=== PATIENT | female | born 1960 | race Caucasian/White ===

== ENCOUNTER 2019-09-07 16:56 | Inpatient (IN) ==
[2019-09-07] MEDS ORDERED: FUROSEMIDE 40 MG/4 ML VIAL IV STA (18:15)
[2019-09-07] MEDS ORDERED: ALBUTEROL/IPRATROPIUM 3 ML NEB RESP TX STA (18:15)
[2019-09-07] MEDS ORDERED: CLINDAMYCIN INJ 900 MG in PREMIX 1 EACH IV STA (18:15)
[2019-09-07 18:24] LABS: Basophils # 0.1 10*3/uL (0.0-0.2); Basophils % 0.5 % (0.0-0.8); Eosinophils # 0.2 10*3/uL (0.0-0.87); Eosinophils % 1.4 % (0.00-10.9); Hematocrit 38.6 VOL% (35.7-47.0); Hemoglobin 12.1 GM/DL (12.0-16.0); Immature Granulocytes % 1.1 %; Immature Granulocytes Absolute 0.14 #; Lymphocytes # 3.4 10*3/uL (1.4-4.0); Lymphocytes % 26.6 % (21.3-54.2); Mean Corpuscular HGB Conc 31.3 GM/DL (32-36); Mean Platelet Volume 9.5 FL (9.6-12.0); Monocytes % 9.5 % (1.7-12.7); Neutrophils % 60.9 % (38.7-73.9); Platelet Count 659 T/CUMM (130-400); Red Blood Count 4.15 MC/CUMM (3.8-5.5); Red Cell Distribution Width 14.1 % (9.3-17.3); White Blood Count 12.9 T/CUMM (4-12)
[2019-09-07 18:33] LABS: PT Patient Result 10.5 SECS (9.6-12.2); Partial Thromboplastin Time 27.3 SECS (20.8-36.0)
[2019-09-07 18:50] LABS: Alanine Aminotransferase 9 U/L (13-56); Albumin 2.7 G/DL (3.4-5.0); Alkaline Phosphatase 96 U/L (45-117); Aspartate Amino Transferase 11 U/L (0-37); Bilirubin,Total < 0.39 MG/DL (0.2-1.0); Blood Urea Nitrogen 6 MG/DL (7-18); Calcium 8.6 MG/DL (8.5-10.1); Estimated Glom Filtration Rate 93 ML/MIN; Glucose 222 MG/DL (74-106); Osmolality,Calculated 270.4 MOS/KG (273-304)
[2019-09-07 18:52] LABS: Troponin I 0.077 NG/ML (0.00-0.045)
[2019-09-07 19:12] LABS: Apearance,Urine CLEAR (Clear); Bacteria,Urine Occasional /HPF (Few); Bilirubin,Urine Negative (Negative); Blood, Urine Negative (Negative); Glucose,Urine (UA) Negative (Negative); Hyaline Casts,Urine 1 /LPF (0-3); Ketones,Urine Negative (Negative); Nitrite,Urine Negative (Negative); Protein,Urine Negative; Squamous Epithelial Cell,Urine Occasional /HPF (0-10); Urine Color Colorless (Yellow); Urine Specific Gravity 1.002 (1.001-1.035); Urine Urobilinogen < 2.0 EU/DL (0.2-1.0); WBC,Urine 2 /HPF (0-6)
[2019-09-07 19:17] LABS: Barbiturates Screen,Urine Negative (Negative); Benzodiazepines Screen,Urine Negative (Negative); Cannabinoid Screen,Urine Negative (Negative); Opiate Screen,Urine Negative (Negative); Phencyclidine Screen,Urine Negative (Negative)
[2019-09-08] MEDS ORDERED: BISACODYL 5 MG TABLET PO PRN (00:14)
[2019-09-08] MEDS ORDERED: MORPHINE 4 MG/1 ML VIAL IV PRN (00:14)
[2019-09-08] MEDS ORDERED: ACETAMINOPHEN 325 MG TABLET PO PRN (00:14)
[2019-09-08] MEDS ORDERED: DEXTROSE 50% 25 GM/50 ML VIAL IV PRN (00:14)
[2019-09-08] MEDS ORDERED: GLUCAGON 1 MG VIAL IM PRN (00:14)
[2019-09-08] MEDS ORDERED: ONDANSETRON 4 MG/2 ML VIAL IV PRN (00:14)
[2019-09-08] MEDS ORDERED: diphenhydrAMINE CAP 25 MG CAPSULE PO PRN (00:14)
[2019-09-08] MEDS ORDERED: NICOTINE 21 MG/24 HR PATCH TRANSDERM PRN (00:14)
[2019-09-08] MEDS ORDERED: guaiFENesin/DM ER 600-30 MG TABLET PO PRN (00:14)
[2019-09-08] MEDS: ALBUTEROL/IPRATROPIUM 3 ML NEB RESP TX SCH ×4 (00:50→19:42)
[2019-09-08] MEDS: CLINDAMYCIN INJ 900 MG in PREMIX 1 EACH IV SCH ×3 (03:39→21:54)
[2019-09-08] MEDS: cefTRIAXone 1,000 MG in SYRINGE 1 EACH IV SCH (03:39)
[2019-09-08 03:45] LABS: Basophils # 0.1 10*3/uL (0.0-0.2); Basophils % 0.5 % (0.0-0.8); Eosinophils # 0.2 10*3/uL (0.0-0.87); Eosinophils % 2.3 % (0.00-10.9); Hematocrit 34.7 VOL% (35.7-47.0); Immature Granulocytes % 1.1 %; Lymphocytes # 2.7 10*3/uL (1.4-4.0); Lymphocytes % 28.8 % (21.3-54.2); Mean Corpuscular HGB Conc 31.7 GM/DL (32-36); Mean Corpuscular Volume 91.1 FL (87-102); Mean Platelet Volume 9.4 FL (9.6-12.0); Monocytes % 14.9 % (1.7-12.7); Neutrophils % 52.4 % (38.7-73.9); Platelet Count 514 T/CUMM (130-400); Red Blood Count 3.81 MC/CUMM (3.8-5.5); Red Cell Distribution Width 14.2 % (9.3-17.3); White Blood Count 9.4 T/CUMM (4-12)
[2019-09-08 04:36] LABS: Alanine Aminotransferase 9 U/L (13-56); Albumin 2.4 G/DL (3.4-5.0); Alkaline Phosphatase 77 U/L (45-117); Aspartate Amino Transferase 9 U/L (0-37); Bilirubin,Total < 0.39 MG/DL (0.2-1.0); Blood Urea Nitrogen 5 MG/DL (7-18); Calcium 8.7 MG/DL (8.5-10.1); Estimated Glom Filtration Rate 95 ML/MIN; Glucose 225 MG/DL (74-106); Osmolality,Calculated 278.7 MOS/KG (273-304); Total Protein 6.4 G/DL (6.4-8.3)
[2019-09-08 05:03] LABS: Risk Ratio 12.47; VLDL CHOLESTEROL 28.4 MG/DL
[2019-09-08] MEDS: FUROSEMIDE 40 MG/4 ML VIAL IV SCH ×2 (09:58→16:16)
[2019-09-08] MEDS: LEVOTHYROXINE 125 MCG TABLET PO SCH (09:58)
[2019-09-08] MEDS: GABAPENTIN 600 MG TABLET PO SCH ×4 (09:58→21:54)
[2019-09-08] MEDS: ENOXAPARIN 40 MG/0.4 ML SYRINGE SUBCUT SCH (09:58)
[2019-09-08] MEDS: ASPIRIN 325 MG TABLET PO SCH (09:58)
[2019-09-08] MEDS: INSULIN REGULAR 100 UNIT/ML SUBCUT SCH ×4 (09:58→21:54)
[2019-09-08] MEDS ORDERED: POTASSIUM CHLORIDE 20 MEQ TABLET PO ONE (12:42)
[2019-09-08] MEDS: ROSUVASTATIN 20 MG TABLET PO SCH (12:59)
[2019-09-08] MEDS: NICOTINE 21 MG/24 HR PATCH TRANSDERM SCH (12:59)
[2019-09-08] MEDS: SPIRONOLACTONE 50 MG TABLET PO SCH (13:00)
[2019-09-08] MEDS: buPROPion SR 100 MG TABLET PO SCH ×2 (13:00→21:54)
[2019-09-08] MEDS ORDERED: METOPROLOL TARTRATE 25 MG TABLET PO SCH (19:00)
[2019-09-08] MEDS ORDERED: ESCITALOPRAM 10 MG TABLET PO SCH (19:00)
[2019-09-08] MEDS: METOPROLOL TARTRATE 25 MG TABLET PO SCH (21:54)
[2019-09-08] MEDS: INSULIN GLARGINE 100 UNIT/ML SUBCUT SCH (21:54)
[2019-09-08] MEDS: ESCITALOPRAM 10 MG TABLET PO SCH (21:54)
[2019-09-09] MEDS: ALBUTEROL/IPRATROPIUM 3 ML NEB RESP TX SCH ×4 (00:35→19:42)
[2019-09-09] MEDS: cefTRIAXone 1,000 MG in SYRINGE 1 EACH IV SCH (02:57)
[2019-09-09] MEDS: CLINDAMYCIN INJ 900 MG in PREMIX 1 EACH IV SCH ×3 (02:58→21:56)
[2019-09-09 04:46] LABS: Basophils % 0.4 % (0.0-0.8); Eosinophils # 0.2 10*3/uL (0.0-0.87); Eosinophils % 2.4 % (0.00-10.9); Hematocrit 35.5 VOL% (35.7-47.0); Hemoglobin 11.2 GM/DL (12.0-16.0); Immature Granulocytes % 0.8 %; Immature Granulocytes Absolute 0.07 #; Lymphocytes # 3.4 10*3/uL (1.4-4.0); Mean Corpuscular HGB Conc 31.5 GM/DL (32-36); Mean Corpuscular Volume 92.7 FL (87-102); Mean Platelet Volume 9.4 FL (9.6-12.0); Monocytes % 17.5 % (1.7-12.7); Neutrophils % 42.9 % (38.7-73.9); Platelet Count 457 T/CUMM (130-400); Red Blood Count 3.83 MC/CUMM (3.8-5.5); Red Cell Distribution Width 14.3 % (9.3-17.3); White Blood Count 9.3 T/CUMM (4-12)
[2019-09-09 05:27] LABS: Eosinophils 3 % (0-10); Lymphocytes 36 % (20-55); Segmented Neutrophils 43 % (50-85); Total Cells Counted 100
[2019-09-09 05:28] LABS: Atypical Lymphocytes Few; Hypochromasia 1+; Microcytosis Slight; Platelet Estimate Increased
[2019-09-09 05:46] LABS: Calcium 8.7 MG/DL (8.5-10.1); Osmolality,Calculated 279.5 MOS/KG (273-304)
[2019-09-09] MEDS: LEVOTHYROXINE 125 MCG TABLET PO SCH (06:23)
[2019-09-09] MEDS: ENOXAPARIN 40 MG/0.4 ML SYRINGE SUBCUT SCH (09:30)
[2019-09-09] MEDS: FUROSEMIDE 40 MG/4 ML VIAL IV SCH (09:31)
[2019-09-09] MEDS: INSULIN REGULAR 100 UNIT/ML SUBCUT SCH ×4 (09:31→21:54)
[2019-09-09] MEDS: NICOTINE 21 MG/24 HR PATCH TRANSDERM SCH (09:32)
[2019-09-09] MEDS: GABAPENTIN 600 MG TABLET PO SCH ×4 (09:33→21:55)
[2019-09-09] MEDS: SPIRONOLACTONE 50 MG TABLET PO SCH (09:33)
[2019-09-09] MEDS: ASPIRIN 325 MG TABLET PO SCH (09:33)
[2019-09-09] MEDS: ROSUVASTATIN 20 MG TABLET PO SCH (09:33)
[2019-09-09] MEDS: buPROPion SR 100 MG TABLET PO SCH ×2 (09:33→21:55)
[2019-09-09] MEDS ORDERED: POTASSIUM CHLORIDE 20 MEQ TABLET PO ONE (10:11)
[2019-09-09] MEDS: EZETIMIBE 10 MG TABLET PO SCH (21:55)
[2019-09-09] MEDS: ESCITALOPRAM 10 MG TABLET PO SCH (21:55)
[2019-09-09] MEDS: ZALEPLON 5 MG CAPSULE PO PRN (21:55)
[2019-09-09] MEDS: INSULIN GLARGINE 100 UNIT/ML SUBCUT SCH (21:55)
[2019-09-09] MEDS: METOPROLOL TARTRATE 25 MG TABLET PO SCH (21:56)
[2019-09-10] MEDS: ALBUTEROL/IPRATROPIUM 3 ML NEB RESP TX SCH ×5 (00:08→23:57)
[2019-09-10] MEDS: cefTRIAXone 1,000 MG in SYRINGE 1 EACH IV SCH (03:31)
[2019-09-10 05:17] LABS: Basophils # 0.1 10*3/uL (0.0-0.2); Basophils % 0.5 % (0.0-0.8); Eosinophils # 0.2 10*3/uL (0.0-0.87); Eosinophils % 2.1 % (0.00-10.9); Hematocrit 36.3 VOL% (35.7-47.0); Hemoglobin 11.1 GM/DL (12.0-16.0); Immature Granulocytes % 0.9 %; Immature Granulocytes Absolute 0.08 #; Lymphocytes % 32.6 % (21.3-54.2); Mean Corpuscular HGB Conc 30.6 GM/DL (32-36); Mean Corpuscular Volume 93.8 FL (87-102); Mean Platelet Volume 9.9 FL (9.6-12.0); Monocytes % 14.1 % (1.7-12.7); Neutrophils % 49.8 % (38.7-73.9); Platelet Count 439 T/CUMM (130-400); Red Blood Count 3.87 MC/CUMM (3.8-5.5); Red Cell Distribution Width 14.4 % (9.3-17.3); White Blood Count 9.3 T/CUMM (4-12)
[2019-09-10 05:47] LABS: Calcium 8.7 MG/DL (8.5-10.1); Osmolality,Calculated 277.1 MOS/KG (273-304)
[2019-09-10] MEDS: CLINDAMYCIN INJ 900 MG in PREMIX 1 EACH IV SCH ×3 (05:50→21:18)
[2019-09-10] MEDS: LEVOTHYROXINE 125 MCG TABLET PO SCH (06:28)
[2019-09-10] MEDS ORDERED: diphenhydrAMINE CAP 25 MG CAPSULE PO ONE (07:25)
[2019-09-10] MEDS ORDERED: DIAZEPAM 5 MG TABLET PO ONE (07:25)
[2019-09-10] MEDS ORDERED: MAGNESIUM SULF RIDER 2 GM in PREMIX 1 EACH IV PRN (07:25)
[2019-09-10] MEDS ORDERED: POTASSIUM CHLORIDE RIDER 10 MEQ in PREMIX 1 EACH IV PRN (07:25)
[2019-09-10] MEDS: INSULIN REGULAR 100 UNIT/ML SUBCUT SCH ×4 (07:56→21:18)
[2019-09-10 08:04] LABS: Calcium 8.8 MG/DL (8.5-10.1); Osmolality,Calculated 271.5 MOS/KG (273-304)
[2019-09-10] MEDS ORDERED: HEPARIN/NACL 0.9% 2 UNITS/ML 1,000 ML IV ONE (08:22)
[2019-09-10] MEDS ORDERED: LIDOCAINE 1%/EPI INJ 20 ML VIAL ONE (08:22)
[2019-09-10] MEDS: SODIUM CHLORIDE 0.45% 1,000 ML IV SCH ×2 (08:42→16:17)
[2019-09-10] MEDS ORDERED: NITROGLYCERIN SL 0.4 MG TABLET SL PRN (08:43)
[2019-09-10] MEDS ORDERED: ASPIRIN 325 MG TABLET ONE (08:51)
[2019-09-10] MEDS ORDERED: MIDAZOLAM 2 MG/2 ML VIAL ONE (08:52)
[2019-09-10] MEDS ORDERED: fentaNYL 100 MCG/2 ML VIAL ONE (08:53)
[2019-09-10] MEDS: FUROSEMIDE 40 MG TABLET PO SCH (10:24)
[2019-09-10] MEDS: ENOXAPARIN 40 MG/0.4 ML SYRINGE SUBCUT SCH (10:24)
[2019-09-10] MEDS: ASPIRIN 325 MG TABLET PO SCH (10:24)
[2019-09-10] MEDS: NICOTINE 21 MG/24 HR PATCH TRANSDERM SCH (10:24)
[2019-09-10] MEDS: buPROPion SR 100 MG TABLET PO SCH ×2 (10:24→21:17)
[2019-09-10] MEDS: SPIRONOLACTONE 50 MG TABLET PO SCH (10:24)
[2019-09-10] MEDS: GABAPENTIN 600 MG TABLET PO SCH ×4 (10:24→21:18)
[2019-09-10] MEDS: ROSUVASTATIN 20 MG TABLET PO SCH (10:25)
[2019-09-10] MEDS ORDERED: DEXTROSE 10% 250 ML BAG IV PRN (10:30)
[2019-09-10] MEDS: MENTHOL/ZINC OXIDE OINT 71 GM JAR TOP SCH ×2 (16:17→21:18)
[2019-09-10] MEDS: INSULIN GLARGINE 100 UNIT/ML SUBCUT SCH (21:17)
[2019-09-10] MEDS: ZALEPLON 5 MG CAPSULE PO PRN (21:17)
[2019-09-10] MEDS: ESCITALOPRAM 10 MG TABLET PO SCH (21:17)
[2019-09-10] MEDS: EZETIMIBE 10 MG TABLET PO SCH (21:18)
[2019-09-10] MEDS: METOPROLOL TARTRATE 25 MG TABLET PO SCH (21:19)
[2019-09-11] MEDS: CLINDAMYCIN INJ 900 MG in PREMIX 1 EACH IV SCH (05:43)
[2019-09-11] MEDS: LEVOTHYROXINE 125 MCG TABLET PO SCH (05:43)
[2019-09-11 07:02] LABS: Basophils # 0.1 10*3/uL (0.0-0.2); Basophils % 0.8 % (0.0-0.8); Eosinophils # 0.2 10*3/uL (0.0-0.87); Hematocrit 37.3 VOL% (35.7-47.0); Hemoglobin 11.4 GM/DL (12.0-16.0); Immature Granulocytes % 0.9 %; Immature Granulocytes Absolute 0.07 #; Lymphocytes # 2.2 10*3/uL (1.4-4.0); Lymphocytes % 28.3 % (21.3-54.2); Mean Corpuscular HGB Conc 30.6 GM/DL (32-36); Mean Corpuscular Volume 93.3 FL (87-102); Mean Platelet Volume 9.5 FL (9.6-12.0); Monocytes % 15.7 % (1.7-12.7); Neutrophils % 51.3 % (38.7-73.9); Platelet Count 399 T/CUMM (130-400); Red Cell Distribution Width 14.2 % (9.3-17.3); White Blood Count 7.7 T/CUMM (4-12)
[2019-09-11 07:21] LABS: Eosinophils 7 % (0-10); Hypochromasia 1+; Lymphocytes 16 % (20-55); Platelet Estimate Adequate; Segmented Neutrophils 64 % (50-85); Total Cells Counted 100
[2019-09-11 07:22] LABS: Microcytosis Slight
[2019-09-11] MEDS: SODIUM CHLORIDE 0.45% 1,000 ML IV SCH (07:44)
[2019-09-11] MEDS: ALBUTEROL/IPRATROPIUM 3 ML NEB RESP TX SCH (08:00)
[2019-09-11 08:12] LABS: Calcium 8.8 MG/DL (8.5-10.1); Osmolality,Calculated 278.8 MOS/KG (273-304)
[2019-09-11] MEDS: MENTHOL/ZINC OXIDE OINT 71 GM JAR TOP SCH (09:18)
[2019-09-11] MEDS: ROSUVASTATIN 20 MG TABLET PO SCH (09:19)
[2019-09-11] MEDS: INSULIN REGULAR 100 UNIT/ML SUBCUT SCH ×2 (09:19→11:50)
[2019-09-11] MEDS: buPROPion SR 100 MG TABLET PO SCH (09:19)
[2019-09-11] MEDS: ENOXAPARIN 40 MG/0.4 ML SYRINGE SUBCUT SCH (09:19)
[2019-09-11] MEDS: GABAPENTIN 600 MG TABLET PO SCH (09:20)
[2019-09-11] MEDS: ASPIRIN 325 MG TABLET PO SCH (09:20)
[2019-09-11] MEDS: FUROSEMIDE 40 MG TABLET PO SCH (09:20)
[2019-09-11] MEDS: NICOTINE 21 MG/24 HR PATCH TRANSDERM SCH (09:20)
[2019-09-11] MEDS: SPIRONOLACTONE 50 MG TABLET PO SCH (09:20)
[2019-09-11 11:55] VITALS: BP 107/59
== END 2019-09-11 13:05 | disposition home or self-care (01) | DRG 287 ==
LOC: N.EDINP 16:56 → N.ED 16:56 → SUATTDRO 09-08 00:14 → N.TELEN 09-08 01:38
PROVIDERS: ADMIT Internal Medicine; ATTEND Hospitalist

== ENCOUNTER 2019-11-13 17:28 | Inpatient (IN) ==
[2019-11-13 18:29] LABS: Basophils # 0.1 10*3/uL (0.0-0.2); Basophils % 0.8 % (0.0-0.8); Eosinophils # 0.2 10*3/uL (0.0-0.87); Eosinophils % 2.3 % (0.00-10.9); Hematocrit 44.6 VOL% (35.7-47.0); Hemoglobin 14.3 GM/DL (12.0-16.0); Immature Granulocytes % 0.9 %; Immature Granulocytes Absolute 0.08 #; Lymphocytes % 33.2 % (21.3-54.2); Mean Corpuscular HGB Conc 32.1 GM/DL (32-36); Mean Corpuscular Volume 86.9 FL (87-102); Mean Platelet Volume 10.8 FL (9.6-12.0); Monocytes % 12.8 % (1.7-12.7); Platelet Count 326 T/CUMM (130-400); Red Blood Count 5.13 MC/CUMM (3.8-5.5); Red Cell Distribution Width 14.6 % (9.3-17.3); White Blood Count 9.1 T/CUMM (4-12)
[2019-11-13 18:39] LABS: INR 0.9; PT Patient Result 10.1 SECS (9.8-11.9); Partial Thromboplastin Time 28.3 SECS (20.8-36.0)
[2019-11-13 18:42] LABS: Alanine Aminotransferase 16 U/L (13-56); Albumin 3.6 G/DL (3.4-5.0); Alkaline Phosphatase 111 U/L (45-117); Aspartate Amino Transferase 11 U/L (0-37); Bilirubin,Total < 0.39 MG/DL (0.2-1.0); Blood Urea Nitrogen 13 MG/DL (7-18); Calcium 9.6 MG/DL (8.5-10.1); Estimated Glom Filtration Rate 108 ML/MIN; Glucose 320 MG/DL (74-106); Osmolality,Calculated 275.5 MOS/KG (273-304); Total Protein 8.5 G/DL (6.4-8.3); Troponin I < 0.015 NG/ML (0.00-0.045)
[2019-11-13] MEDS ORDERED: GLUCAGON 1 MG VIAL IM PRN (19:41)
[2019-11-13] MEDS ORDERED: ONDANSETRON 4 MG/2 ML VIAL IV PRN (19:41)
[2019-11-13] MEDS ORDERED: DEXTROSE 50% 25 GM/50 ML VIAL IV PRN (19:41)
[2019-11-13] MEDS ORDERED: NICOTINE 21 MG/24 HR PATCH TRANSDERM PRN (19:41)
[2019-11-13] MEDS ORDERED: ALBUTEROL/IPRATROPIUM 3 ML NEB RESP TX PRN (19:41)
[2019-11-13] MEDS ORDERED: NITROGLYCERIN SL 0.4 MG TABLET SL PRN (21:34)
[2019-11-13] MEDS ORDERED: ALBUTEROL 2.5 MG/3 ML NEB RESP TX PRN (21:39)
[2019-11-13] MEDS: ENOXAPARIN 40 MG/0.4 ML SYRINGE SUBCUT SCH (21:55)
[2019-11-13] MEDS: INSULIN REGULAR 100 UNIT/ML SUBCUT SCH (21:55)
[2019-11-13] MEDS: ZALEPLON 5 MG CAPSULE PO SCH (21:56)
[2019-11-13] MEDS: GABAPENTIN 600 MG TABLET PO SCH (21:56)
[2019-11-13] MEDS: oxyCODONE/ACETAMINOPHEN 5-325 MG TABLET PO SCH (21:56)
[2019-11-13] MEDS: ESCITALOPRAM 10 MG TABLET PO SCH (21:56)
[2019-11-14 05:31] LABS: Basophils # 0.1 10*3/uL (0.0-0.2); Basophils % 0.9 % (0.0-0.8); Eosinophils # 0.2 10*3/uL (0.0-0.87); Eosinophils % 2.1 % (0.00-10.9); Hematocrit 43.3 VOL% (35.7-47.0); Hemoglobin 13.6 GM/DL (12.0-16.0); Immature Granulocytes % 0.5 %; Immature Granulocytes Absolute 0.05 #; Lymphocytes % 42.7 % (21.3-54.2); Mean Corpuscular HGB Conc 31.4 GM/DL (32-36); Mean Corpuscular Volume 87.3 FL (87-102); Mean Platelet Volume 10.6 FL (9.6-12.0); Monocytes % 13.3 % (1.7-12.7); Neutrophils % 40.5 % (38.7-73.9); Platelet Count 296 T/CUMM (130-400); Red Blood Count 4.96 MC/CUMM (3.8-5.5); Red Cell Distribution Width 14.9 % (9.3-17.3); White Blood Count 9.3 T/CUMM (4-12)
[2019-11-14 05:47] LABS: Alanine Aminotransferase 15 U/L (13-56); Albumin 2.9 G/DL (3.4-5.0); Alkaline Phosphatase 91 U/L (45-117); Aspartate Amino Transferase 12 U/L (0-37); Bilirubin,Total < 0.39 MG/DL (0.2-1.0); Blood Urea Nitrogen 14 MG/DL (7-18); Calcium 9.4 MG/DL (8.5-10.1); Estimated Glom Filtration Rate 77 ML/MIN; Glucose 186 MG/DL (74-106); Osmolality,Calculated 278.8 MOS/KG (273-304); Total Protein 7.3 G/DL (6.4-8.3)
[2019-11-14] MEDS: LEVOTHYROXINE 125 MCG TABLET PO SCH (06:30)
[2019-11-14] MEDS ORDERED: ALPRAZolam 0.5 MG TABLET PO ONE (08:36)
[2019-11-14] MEDS: GABAPENTIN 600 MG TABLET PO SCH ×4 (09:01→20:07)
[2019-11-14] MEDS: oxyCODONE/ACETAMINOPHEN 5-325 MG TABLET PO SCH ×3 (09:01→20:07)
[2019-11-14] MEDS: SPIRONOLACTONE 25 MG TABLET PO SCH (09:01)
[2019-11-14] MEDS: INSULIN REGULAR 100 UNIT/ML SUBCUT SCH ×3 (09:02→17:17)
[2019-11-14] MEDS ORDERED: DEXTROSE 10% 250 ML BAG IV PRN (10:13)
[2019-11-14] MEDS ORDERED: GLUCAGON 1 MG VIAL IM PRN (10:13)
[2019-11-14] MEDS: INSULIN LISPRO 100 UNIT/ML SUBCUT SCH ×3 (13:20→21:00)
[2019-11-14] MEDS: ESCITALOPRAM 10 MG TABLET PO SCH (20:06)
[2019-11-14] MEDS: ZALEPLON 5 MG CAPSULE PO SCH (20:07)
[2019-11-14] MEDS: ENOXAPARIN 40 MG/0.4 ML SYRINGE SUBCUT SCH (20:08)
[2019-11-15] MEDS: INSULIN REGULAR 100 UNIT/ML SUBCUT SCH ×5 (00:47→22:33)
[2019-11-15 06:07] LABS: Risk Ratio 12.9; VLDL CHOLESTEROL 47.6 MG/DL
[2019-11-15] MEDS: LEVOTHYROXINE 125 MCG TABLET PO SCH (06:28)
[2019-11-15] MEDS: INSULIN LISPRO 100 UNIT/ML SUBCUT SCH ×2 (08:47→12:20)
[2019-11-15] MEDS: GABAPENTIN 600 MG TABLET PO SCH ×4 (08:47→22:33)
[2019-11-15] MEDS: oxyCODONE/ACETAMINOPHEN 5-325 MG TABLET PO SCH ×3 (08:48→22:34)
[2019-11-15] MEDS: SPIRONOLACTONE 25 MG TABLET PO SCH (08:48)
[2019-11-15] MEDS: ASPIRIN EC 325 MG TABLET PO SCH (17:24)
[2019-11-15] MEDS: CLOPIDOGREL 75 MG TABLET PO SCH (17:24)
[2019-11-15] MEDS ORDERED: ROSUVASTATIN 10 MG TABLET PO SCH (21:00)
[2019-11-15] MEDS ORDERED: INSULIN GLARGINE 100 UNIT/ML SUBCUT SCH (21:00)
[2019-11-15] MEDS: ZALEPLON 5 MG CAPSULE PO SCH (22:34)
[2019-11-15] MEDS: ESCITALOPRAM 10 MG TABLET PO SCH (22:34)
[2019-11-15] MEDS: ENOXAPARIN 40 MG/0.4 ML SYRINGE SUBCUT SCH (22:35)
[2019-11-16] MEDS: LEVOTHYROXINE 125 MCG TABLET PO SCH (07:47)
[2019-11-16 08:01] VITALS: BP 114/68
[2019-11-16] MEDS: INSULIN REGULAR 100 UNIT/ML SUBCUT SCH ×2 (08:24→12:56)
[2019-11-16] MEDS: SPIRONOLACTONE 25 MG TABLET PO SCH (08:24)
[2019-11-16] MEDS: oxyCODONE/ACETAMINOPHEN 5-325 MG TABLET PO SCH (08:25)
[2019-11-16] MEDS: ASPIRIN EC 325 MG TABLET PO SCH (08:25)
[2019-11-16] MEDS: GABAPENTIN 600 MG TABLET PO SCH ×2 (08:25→12:56)
[2019-11-16] MEDS: CLOPIDOGREL 75 MG TABLET PO SCH (08:25)
== END 2019-11-16 13:10 | DRG 65 ==
LOC: N.EDINP 17:28 → N.ED 17:28 → N.TELEN 20:27
PROVIDERS: ADMIT Internal Medicine Geriatric Medicine; ATTEND Internal Medicine Geriatric Medicine

== ENCOUNTER 2021-02-17 11:53 | Inpatient (IN) ==
[2021-02-17] MEDS ORDERED: SODIUM CHLORIDE 0.9% 2,000 ML IV STA (12:38)
[2021-02-17] MEDS ORDERED: VANCOMYCIN INJ 1,500 MG in SODIUM CHLORIDE 0.9% 500 ML IV STA (12:39)
[2021-02-17] MEDS ORDERED: MEROPENEM 1,000 MG in SODIUM CHLORIDE 0.9% 100 ML IV STA (12:39)
[2021-02-17] MEDS ORDERED: SODIUM CHLORIDE 0.9% 500 ML IV STA (13:00)
[2021-02-17 13:02] LABS: Hematocrit 34.7 VOL% (35.7-47.0); Immature Granulocytes % 16.2 %; Immature Granulocytes Absolute 9.59 #; Lymphocytes % 3.4 % (21.3-54.2); Mean Corpuscular HGB Conc 28.8 GM/DL (32-36); Mean Corpuscular Volume 88.3 FL (87-102); Mean Platelet Volume 10.1 FL (9.6-12.0); Monocytes % 8.1 % (1.7-12.7); NRBC # 0.04 10*3/uL; Neutrophils % 72.3 % (38.7-73.9); Platelet Count 628 T/CUMM (130-400); Red Blood Count 3.93 MC/CUMM (3.8-5.5); Red Cell Distribution Width 16.1 % (9.3-17.3)
[2021-02-17 13:05] LABS: White Blood Count 59.1 T/CUMM (4-12)
[2021-02-17] MEDS ORDERED: CLINDAMYCIN INJ 900 MG/50 ML PREMIX IV STA (13:09)
[2021-02-17 13:17] LABS: Bilirubin,Total 0.6 MG/DL (0.20-1.00); Calcium 10.1 MG/DL (8.5-10.1); Osmolality,Calculated 321.5 MOS/KG (273-304); Potassium 5.2 MMOL/L (3.5-5.1); Total Protein 8.1 G/DL (6.4-8.2)
[2021-02-17 13:18] LABS: INR 1.1; PT Patient Result 12.5 SECS (10.5-12.0); Partial Thromboplastin Time 27.4 SECS (23.9-33.8)
[2021-02-17] MEDS ORDERED: INSULIN REGULAR 100 UNIT/ML IV STA (13:18)
[2021-02-17 13:27] LABS: Bilirubin,Urine Negative (Negative); Blood, Urine Small mg/dL (Negative); Glucose,Urine (UA) >=500 mg/dL (Negative); Ketones,Urine 80 mg/dL (Negative); Mucus,Urine Occasional /LPF (Occasional); Nitrite,Urine Negative (Negative); Protein,Urine Negative; RBC,Urine <1 /HPF (0-4); Squamous Epithelial Cell,Urine Occasional /HPF (0-10); Urine Appearance Slightly Hazy (Clear); Urine Color Yellow (Yellow); Urine Specific Gravity 1.023 (1.001-1.035); Urine Urobilinogen < 2.0 EU/DL (0.2-1.0)
[2021-02-17 13:36] LABS: Barbiturates Screen,Urine Negative (Negative); Benzodiazepines Screen,Urine Negative (Negative); Cannabinoid Screen,Urine Negative (Negative); Opiate Screen,Urine Negative (Negative); Phencyclidine Screen,Urine Negative (Negative)
[2021-02-17] MEDS ORDERED: ONDANSETRON 4 MG/2 ML VIAL IV PRN (13:48)
[2021-02-17] MEDS ORDERED: ALBUTEROL 2.5 MG/3 ML NEB RESP TX PRN (13:48)
[2021-02-17] MEDS ORDERED: PROMETHAZINE 25 MG/1 ML VIAL IM PRN (13:48)
[2021-02-17] MEDS ORDERED: MAGNESIUM SULF RIDER 2 GM/50 ML PREMIX IV PRN (13:54)
[2021-02-17] MEDS ORDERED: POTASSIUM CHLORIDE RIDER 10 MEQ/100 ML PREMIX IV PRN (13:54)
[2021-02-17] MEDS ORDERED: MAGNESIUM SULF RIDER 4 GM/100 ML PREMIX IV PRN (13:54)
[2021-02-17] MEDS ORDERED: DEXTROSE 50% 25 GM/50 ML VIAL IV PRN ×2 (13:54)
[2021-02-17 13:59] LABS: Band Neutrophils 2 % (0-10); Lymphocytes 4 % (20-55); Myelocytes 1 %; Segmented Neutrophils 83 % (50-85); Total Cells Counted 100
[2021-02-17 14:01] LABS: Platelet Estimate Normal
[2021-02-17 14:02] LABS: Atypical Lymphocytes Few; Hypochromasia Slight
[2021-02-17] MEDS: PANTOPRAZOLE 40 MG VIAL IV SCH (16:00)
[2021-02-17] MEDS: LACTATED RINGERS 1,000 ML IV SCH ×2 (16:00→19:48)
[2021-02-17] MEDS: ENOXAPARIN 40 MG/0.4 ML SYRINGE SUBCUT SCH (16:00)
[2021-02-17 18:55] LABS: ABG Base Excess -18.3 MMOL/L (-2.5-2.5); ABG HCO3 7.3 MMOL/L (20-26); ABG PH 7.231 (7.35-7.45); ABG PO2 126.2 MM HG (80-95); ABG TCO2 7.8 MMOL/L (23-27); Allen Test Positive; Pt O2 Delivery Device Room Air
[2021-02-17 18:58] LABS: ABG PCO2 17.7 MM HG (35-48)
[2021-02-17 19:07] LABS: Osmolality,Calculated 325.8 MOS/KG (273-304); Potassium 4.6 MMOL/L (3.5-5.1)
[2021-02-17 19:08] LABS: Calcium 9.6 MG/DL (8.5-10.1)
[2021-02-17] MEDS: NOREPINEPHRINE 8 MG in SODIUM CHLORIDE 0.9% 242 ML IV PRN (19:16)
[2021-02-17] MEDS: INSULIN REGULAR DRIP 100 ML IV SCH (19:22)
[2021-02-17] MEDS ORDERED: SODIUM BICARBONATE 50 MEQ/50 ML VIAL IV ONE (19:30)
[2021-02-17] MEDS: SODIUM BICARB INJ 150 MEQ in STERILE WATER INJ 850 ML IV SCH ×2 (20:08→22:42)
[2021-02-17 23:04] LABS: Calcium 9.4 MG/DL (8.5-10.1); Potassium 4.7 MMOL/L (3.5-5.1)
[2021-02-18 01:37] LABS: Hematocrit 31.3 VOL% (35.7-47.0); Hemoglobin 10.3 GM/DL (12.0-16.0); Immature Granulocytes % 10.1 %; Immature Granulocytes Absolute 5.16 #; Lymphocytes # 1.9 10*3/uL (1.4-4.0); Lymphocytes % 3.7 % (21.3-54.2); Mean Corpuscular HGB Conc 32.9 GM/DL (32-36); Mean Corpuscular Volume 78.6 FL (87-102); Mean Platelet Volume 9.5 FL (9.6-12.0); Monocytes % 9.7 % (1.7-12.7); NRBC # 0.07 10*3/uL; Neutrophils % 76.5 % (38.7-73.9); Platelet Count 609 T/CUMM (130-400); Red Blood Count 3.98 MC/CUMM (3.8-5.5); Red Cell Distribution Width 15.3 % (9.3-17.3)
[2021-02-18 01:39] LABS: White Blood Count 51.2 T/CUMM (4-12)
[2021-02-18 01:55] LABS: Calcium 9.5 MG/DL (8.5-10.1); Osmolality,Calculated 310.4 MOS/KG (273-304)
[2021-02-18] MEDS: MEROPENEM 500 MG in SODIUM CHLORIDE 0.9% 100 ML IV SCH ×4 (02:11→19:39)
[2021-02-18] MEDS: SODIUM BICARB INJ 150 MEQ in STERILE WATER INJ 850 ML IV SCH (02:11)
[2021-02-18] MEDS: CLINDAMYCIN INJ 600 MG/50 ML PREMIX IV SCH ×3 (02:48→18:31)
[2021-02-18] MEDS: SODIUM CHLOR 0.45% KCL 20 MEQ 20 MEQ/1,000 ML BAG IV SCH ×6 (02:51→22:12)
[2021-02-18 03:50] LABS: ABG Base Excess -4.4 MMOL/L (-2.5-2.5); ABG HCO3 20.7 MMOL/L (20-26); ABG Oxygen Saturation 95.5 % (95-100); ABG PCO2 25.6 MM HG (35-48); ABG PH 7.458 (7.35-7.45); ABG PO2 72.4 MM HG (80-95); ABG TCO2 16.1 MMOL/L (23-27)
[2021-02-18 04:07] LABS: Band Neutrophils 5 % (0-10); Lymphocytes 4 % (20-55); Myelocytes 1 %; Segmented Neutrophils 81 % (50-85); Total Cells Counted 100
[2021-02-18 04:08] LABS: Hypochromasia Slight; Platelet Estimate Increased
[2021-02-18] MEDS: NOREPINEPHRINE 8 MG in SODIUM CHLORIDE 0.9% 242 ML IV PRN ×2 (04:40→20:05)
[2021-02-18 06:13] LABS: Calcium 9.1 MG/DL (8.5-10.1); Potassium 3.8 MMOL/L (3.5-5.1)
[2021-02-18] MEDS ORDERED: LACTATED RINGERS 1,000 ML IV ONE (08:36)
[2021-02-18] MEDS: VANCOMYCIN INJ 750 MG in SODIUM CHLORIDE 0.9% 250 ML IV SCH ×2 (09:35→21:07)
[2021-02-18] MEDS ORDERED: POTASSIUM PHOSPHATE 30 MMOL in SODIUM CHLORIDE 0.9% 250 ML IV ONE (11:00)
[2021-02-18] MEDS: DEXT 5% NACL 0.45% KCL 20 MEQ 20 MEQ/1,000 ML BAG IV SCH ×4 (11:07→22:10)
[2021-02-18 11:23] LABS: Calcium 8.7 MG/DL (8.5-10.1); Potassium 3.4 MMOL/L (3.5-5.1)
[2021-02-18] MEDS ORDERED: DEXTROSE 50% 25 GM/50 ML VIAL IV PRN (12:11)
[2021-02-18] MEDS ORDERED: GLUCAGON 1 MG VIAL IM PRN (12:11)
[2021-02-18] MEDS ORDERED: MIDAZOLAM 2 MG/2 ML VIAL ONE (13:53)
[2021-02-18] MEDS ORDERED: SEVOFLURANE 1 UNIT/15 MINUTE INH ONE ×5 (13:53→16:33)
[2021-02-18] MEDS ORDERED: ROCURONIUM 50 MG/5 ML VIAL IV ONE (13:53)
[2021-02-18] MEDS ORDERED: ETOMIDATE 40 MG/20 ML VIAL IV ONE (13:53)
[2021-02-18] MEDS ORDERED: LIDOCAINE 2% 5 ML VIAL ONE (13:53)
[2021-02-18] MEDS ORDERED: fentaNYL 100 MCG/2 ML VIAL ONE (13:53)
[2021-02-18] MEDS: INSULIN REGULAR 100 UNIT/ML SUBCUT SCH ×5 (13:56→22:01)
[2021-02-18] MEDS ORDERED: HEPARIN/NACL 0.9% 2 UNITS/ML 1,000 UNIT/500 ML BAG IV ONE (14:43)
[2021-02-18] MEDS: INSULIN REGULAR DRIP 100 ML IV SCH (15:01)
[2021-02-18] MEDS ORDERED: MINERAL OIL/PETROLATUM OPH OINT 3.5 GM TUBE ONE (16:06)
[2021-02-18] MEDS ORDERED: PHENYLEPHRINE 1 MG/10 ML SYRINGE IV ONE (16:06)
[2021-02-18] MEDS ORDERED: MIDAZOLAM 100 MG in SODIUM CHLORIDE 0.9% 80 ML IV PRN (16:26)
[2021-02-18] MEDS: ENOXAPARIN 40 MG/0.4 ML SYRINGE SUBCUT SCH (16:30)
[2021-02-18] MEDS ORDERED: SODIUM CHLORIDE 0.9% 1,000 ML IV ONE (16:33)
[2021-02-18 17:02] LABS: ABG Base Excess -1.7 MMOL/L (-2.5-2.5); ABG Oxygen Saturation 99.9 % (95-100); ABG PCO2 31.5 MM HG (35-48); ABG PH 7.447 (7.35-7.45); ABG TCO2 20.1 MMOL/L (23-27)
[2021-02-18] MEDS: PANTOPRAZOLE 40 MG VIAL IV SCH (17:19)
[2021-02-18 18:07] LABS: Calcium 7.6 MG/DL (8.5-10.1); Osmolality,Calculated 307.6 MOS/KG (273-304); Potassium 4.3 MMOL/L (3.5-5.1)
[2021-02-19] MEDS: INSULIN REGULAR 100 UNIT/ML SUBCUT SCH ×13 (00:29→22:26)
[2021-02-19] MEDS: DEXT 5% NACL 0.45% KCL 20 MEQ 20 MEQ/1,000 ML BAG IV SCH ×3 (02:31→10:27)
[2021-02-19] MEDS: MEROPENEM 500 MG in SODIUM CHLORIDE 0.9% 100 ML IV SCH ×4 (02:34→19:25)
[2021-02-19] MEDS: CLINDAMYCIN INJ 600 MG/50 ML PREMIX IV SCH ×3 (03:14→18:20)
[2021-02-19] MEDS: SODIUM CHLOR 0.45% KCL 20 MEQ 20 MEQ/1,000 ML BAG IV SCH ×3 (04:12→10:27)
[2021-02-19 04:58] LABS: ABG Base Excess 1.5 MMOL/L (-2.5-2.5); ABG HCO3 25.8 MMOL/L (20-26); ABG PCO2 27.8 MM HG (35-48); ABG PH 7.536 (7.35-7.45); ABG TCO2 21.6 MMOL/L (23-27)
[2021-02-19 05:19] LABS: Basophils # 0.1 10*3/uL (0.0-0.2); Basophils % 0.2 % (0.0-0.8); Hematocrit 24.9 VOL% (35.7-47.0); Hemoglobin 8.1 GM/DL (12.0-16.0); Immature Granulocytes % 8.3 %; Immature Granulocytes Absolute 2.12 #; Lymphocytes # 2.3 10*3/uL (1.4-4.0); Lymphocytes % 9.1 % (21.3-54.2); Mean Corpuscular HGB Conc 32.5 GM/DL (32-36); Mean Corpuscular Volume 77.6 FL (87-102); Mean Platelet Volume 9.6 FL (9.6-12.0); Monocytes % 6.9 % (1.7-12.7); NRBC # 0.03 10*3/uL; Neutrophils % 75.5 % (38.7-73.9); Platelet Count 379 T/CUMM (130-400); Red Blood Count 3.21 MC/CUMM (3.8-5.5); Red Cell Distribution Width 15.2 % (9.3-17.3); White Blood Count 25.5 T/CUMM (4-12)
[2021-02-19 05:38] LABS: Band Neutrophils 1 % (0-10); Hypochromasia 1+; Lymphocytes 9 % (20-55); Microcytosis 1+; Myelocytes 1 %; Platelet Estimate Adequate; Segmented Neutrophils 77 % (50-85); Total Cells Counted 100
[2021-02-19 05:52] LABS: Alanine Aminotransferase 25 U/L (13-56); Albumin 1.3 G/DL (3.4-5.0); Alkaline Phosphatase 122 U/L (45-117); Aspartate Amino Transferase 153 U/L (0-37); Bilirubin,Total < 0.39 MG/DL (0.20-1.00); Blood Urea Nitrogen 24 MG/DL (7-18); Calcium 7.4 MG/DL (8.5-10.1); Carbon Dioxide 25 MMOL/L (21-32); Estimated Glom Filtration Rate 113 ML/MIN; Glucose 104 MG/DL (74-106); Osmolality,Calculated 302.9 MOS/KG (273-304); Potassium 3.4 MMOL/L (3.5-5.1); Sodium 151 MMOL/L (136-145)
[2021-02-19] MEDS: MORPHINE 2 MG/1 ML SYRINGE IV PRN ×2 (08:44→15:13)
[2021-02-19] MEDS ORDERED: POTASSIUM PHOSPHATE 30 MMOL in SODIUM CHLORIDE 0.9% 250 ML IV ONE (09:00)
[2021-02-19] MEDS: VANCOMYCIN INJ 750 MG in SODIUM CHLORIDE 0.9% 250 ML IV SCH ×2 (09:10→20:50)
[2021-02-19] MEDS: ALBUTEROL/IPRATROPIUM 3 ML NEB RESP TX SCH ×2 (13:00→19:32)
[2021-02-19] MEDS: ENOXAPARIN 40 MG/0.4 ML SYRINGE SUBCUT SCH (15:06)
[2021-02-19] MEDS: PANTOPRAZOLE 40 MG VIAL IV SCH (15:07)
[2021-02-19] MEDS: NOREPINEPHRINE 8 MG in SODIUM CHLORIDE 0.9% 242 ML IV PRN (20:49)
[2021-02-20] MEDS: INSULIN REGULAR 100 UNIT/ML SUBCUT SCH ×13 (00:19→23:21)
[2021-02-20] MEDS: ALBUTEROL/IPRATROPIUM 3 ML NEB RESP TX SCH ×4 (01:00→20:45)
[2021-02-20] MEDS: MEROPENEM 500 MG in SODIUM CHLORIDE 0.9% 100 ML IV SCH ×4 (01:59→20:15)
[2021-02-20] MEDS: CLINDAMYCIN INJ 600 MG/50 ML PREMIX IV SCH ×3 (02:41→18:18)
[2021-02-20 04:16] LABS: ABG Base Excess 2.2 MMOL/L (-2.5-2.5); ABG HCO3 26.4 MMOL/L (20-26); ABG Oxygen Saturation 99.7 % (95-100); ABG PCO2 27.8 MM HG (35-48); ABG PH 7.547 (7.35-7.45); ABG TCO2 22.3 MMOL/L (23-27)
[2021-02-20 04:44] LABS: Basophils # 0.1 10*3/uL (0.0-0.2); Basophils % 0.3 % (0.0-0.8); Hematocrit 26.2 VOL% (35.7-47.0); Hemoglobin 8.4 GM/DL (12.0-16.0); Immature Granulocytes % 9.8 %; Immature Granulocytes Absolute 2.45 #; Lymphocytes # 2.6 10*3/uL (1.4-4.0); Lymphocytes % 10.3 % (21.3-54.2); Mean Corpuscular HGB Conc 32.1 GM/DL (32-36); Mean Corpuscular Volume 78.2 FL (87-102); Mean Platelet Volume 10.5 FL (9.6-12.0); Monocytes % 7.1 % (1.7-12.7); NRBC # 0.15 10*3/uL; Neutrophils % 72.5 % (38.7-73.9); Platelet Count 364 T/CUMM (130-400); Red Blood Count 3.35 MC/CUMM (3.8-5.5); Red Cell Distribution Width 15.7 % (9.3-17.3); White Blood Count 25.1 T/CUMM (4-12)
[2021-02-20 05:26] LABS: Albumin 1.3 G/DL (3.4-5.0); Bilirubin,Total 0.7 MG/DL (0.20-1.00); Calcium 7.4 MG/DL (8.5-10.1); Osmolality,Calculated 302.3 MOS/KG (273-304); Potassium 3.7 MMOL/L (3.5-5.1); Total Protein 6.1 G/DL (6.4-8.2)
[2021-02-20 05:28] LABS: Band Neutrophils 2 % (0-10); Hypochromasia Slight; Lymphocytes 9 % (20-55); Microcytosis Slight; Platelet Estimate Normal; Segmented Neutrophils 80 % (50-85); Total Cells Counted 100
[2021-02-20] MEDS: VANCOMYCIN INJ 750 MG in SODIUM CHLORIDE 0.9% 250 ML IV SCH ×2 (08:27→20:52)
[2021-02-20] MEDS: ENOXAPARIN 40 MG/0.4 ML SYRINGE SUBCUT SCH (14:06)
[2021-02-20] MEDS: PANTOPRAZOLE 40 MG VIAL IV SCH (14:07)
[2021-02-20] MEDS: NOREPINEPHRINE 8 MG in SODIUM CHLORIDE 0.9% 242 ML IV PRN (15:54)
[2021-02-20] MEDS: MORPHINE 2 MG/1 ML SYRINGE IV PRN (20:43)
[2021-02-20] MEDS ORDERED: LORazepam 2 MG/1 ML VIAL IV PRN (21:33)
[2021-02-21] MEDS: ALBUTEROL/IPRATROPIUM 3 ML NEB RESP TX SCH ×4 (00:09→19:30)
[2021-02-21] MEDS: MORPHINE 2 MG/1 ML SYRINGE IV PRN ×5 (00:50→22:00)
[2021-02-21] MEDS: INSULIN REGULAR 100 UNIT/ML SUBCUT SCH ×7 (02:17→23:50)
[2021-02-21] MEDS: MEROPENEM 500 MG in SODIUM CHLORIDE 0.9% 100 ML IV SCH ×4 (02:17→20:50)
[2021-02-21] MEDS: CLINDAMYCIN INJ 600 MG/50 ML PREMIX IV SCH ×3 (03:18→18:01)
[2021-02-21 08:29] LABS: Basophils % 0.2 % (0.0-0.8); Eosinophils # 0.1 10*3/uL (0.0-0.87); Eosinophils % 0.3 % (0.00-10.9); Hematocrit 23.3 VOL% (35.7-47.0); Hemoglobin 7.5 GM/DL (12.0-16.0); Immature Granulocytes % 5.8 %; Immature Granulocytes Absolute 1.22 #; Lymphocytes # 2.7 10*3/uL (1.4-4.0); Lymphocytes % 12.8 % (21.3-54.2); Mean Corpuscular HGB Conc 32.2 GM/DL (32-36); Mean Corpuscular Volume 78.7 FL (87-102); Mean Platelet Volume 10.5 FL (9.6-12.0); Monocytes % 4.3 % (1.7-12.7); NRBC # 0.07 10*3/uL; Neutrophils % 76.6 % (38.7-73.9); Platelet Count 256 T/CUMM (130-400); Red Blood Count 2.96 MC/CUMM (3.8-5.5); Red Cell Distribution Width 15.9 % (9.3-17.3)
[2021-02-21 08:33] LABS: ABG Base Excess 1.8 MMOL/L (-2.5-2.5); ABG Oxygen Saturation 99.3 % (95-100); ABG PCO2 35.3 MM HG (35-48); ABG PH 7.465 (7.35-7.45); ABG TCO2 23.8 MMOL/L (23-27)
[2021-02-21 08:57] LABS: Band Neutrophils 2 % (0-10); Eosinophils 1 % (0-10); Hypochromasia 1+; Lymphocytes 8 % (20-55); Myelocytes 1 %; Nucleated Red Blood Cells 1 (0-5); Segmented Neutrophils 84 % (50-85); Total Cells Counted 100
[2021-02-21 08:58] LABS: Microcytosis 1+; Polychromasia Slight; Target Cells Slight
[2021-02-21 09:01] LABS: Calcium 6.9 MG/DL (8.5-10.1); Osmolality,Calculated 290.7 MOS/KG (273-304); Potassium 3.2 MMOL/L (3.5-5.1)
[2021-02-21] MEDS ORDERED: DIGOXIN 0.5 MG/2 ML AMP IV ONE ×2 (09:03→09:30)
[2021-02-21] MEDS: ENOXAPARIN 60 MG/0.6 ML SYRINGE SUBCUT SCH ×2 (09:26→21:20)
[2021-02-21] MEDS: POTASSIUM CHLORIDE 20 MEQ TABLET PO SCH ×4 (09:28→21:20)
[2021-02-21] MEDS ORDERED: GLUCAGON 1 MG VIAL IM PRN (09:45)
[2021-02-21] MEDS ORDERED: DEXTROSE 50% 25 GM/50 ML VIAL IV PRN (09:45)
[2021-02-21] MEDS: VANCOMYCIN INJ 750 MG in SODIUM CHLORIDE 0.9% 250 ML IV SCH ×2 (10:08→21:20)
[2021-02-21] MEDS: NOREPINEPHRINE 8 MG in SODIUM CHLORIDE 0.9% 242 ML IV PRN (14:33)
[2021-02-21] MEDS: PANTOPRAZOLE 40 MG VIAL IV SCH (14:37)
[2021-02-22] MEDS ORDERED: ALBUMIN 25% 25 GM/100 ML VIAL IV ONE (00:39)
[2021-02-22] MEDS ORDERED: LACTATED RINGERS 500 ML IV ONE (00:41)
[2021-02-22] MEDS: ALBUTEROL/IPRATROPIUM 3 ML NEB RESP TX SCH ×4 (00:50→19:10)
[2021-02-22] MEDS ORDERED: LACTATED RINGERS 1,000 ML IV SCH (01:00)
[2021-02-22] MEDS: MEROPENEM 500 MG in SODIUM CHLORIDE 0.9% 100 ML IV SCH ×4 (01:30→19:30)
[2021-02-22] MEDS ORDERED: HEPARIN/NACL 0.9% 2 UNITS/ML 1,000 UNIT/500 ML BAG IV ONE (01:45)
[2021-02-22] MEDS: CLINDAMYCIN INJ 600 MG/50 ML PREMIX IV SCH (02:27)
[2021-02-22 04:52] LABS: Basophils % 0.1 % (0.0-0.8); Eosinophils # 0.1 10*3/uL (0.0-0.87); Eosinophils % 0.4 % (0.00-10.9); Hematocrit 22.7 VOL% (35.7-47.0); Immature Granulocytes % 4.9 %; Immature Granulocytes Absolute 0.78 #; Lymphocytes # 2.5 10*3/uL (1.4-4.0); Lymphocytes % 15.4 % (21.3-54.2); Mean Corpuscular HGB Conc 30.8 GM/DL (32-36); Mean Corpuscular Volume 81.9 FL (87-102); Mean Platelet Volume 10.8 FL (9.6-12.0); Monocytes % 5.9 % (1.7-12.7); NRBC # 0.06 10*3/uL; Neutrophils % 73.3 % (38.7-73.9); Platelet Count 282 T/CUMM (130-400); Red Blood Count 2.77 MC/CUMM (3.8-5.5); Red Cell Distribution Width 16.1 % (9.3-17.3); White Blood Count 15.9 T/CUMM (4-12)
[2021-02-22 05:21] LABS: Calcium 7.1 MG/DL (8.5-10.1); Potassium 4.2 MMOL/L (3.5-5.1)
[2021-02-22 05:56] LABS: Hypochromasia Slight; Lymphocytes 12 % (20-55); Platelet Estimate Normal; Segmented Neutrophils 83 % (50-85); Total Cells Counted 100
[2021-02-22] MEDS: INSULIN REGULAR 100 UNIT/ML SUBCUT SCH ×3 (06:07→18:33)
[2021-02-22] MEDS ORDERED: SODIUM CHLORIDE 0.9% 1,000 ML IV PRN (07:36)
[2021-02-22] MEDS: ENOXAPARIN 60 MG/0.6 ML SYRINGE SUBCUT SCH ×2 (09:09→20:19)
[2021-02-22] MEDS: DIGOXIN 0.25 MG TABLET PO SCH (09:09)
[2021-02-22] MEDS: MORPHINE 2 MG/1 ML SYRINGE IV PRN ×2 (09:12→13:48)
[2021-02-22] MEDS: VANCOMYCIN INJ 750 MG in SODIUM CHLORIDE 0.9% 250 ML IV SCH ×2 (09:35→20:19)
[2021-02-22] MEDS: PANTOPRAZOLE 40 MG VIAL IV SCH (15:46)
[2021-02-23] MEDS: ALBUTEROL/IPRATROPIUM 3 ML NEB RESP TX SCH ×4 (00:40→19:29)
[2021-02-23] MEDS: INSULIN REGULAR 100 UNIT/ML SUBCUT SCH ×5 (00:45→23:45)
[2021-02-23] MEDS: MEROPENEM 500 MG in SODIUM CHLORIDE 0.9% 100 ML IV SCH ×2 (01:00→08:07)
[2021-02-23 02:26] LABS: ABG Base Excess 1.1 MMOL/L (-2.5-2.5); ABG HCO3 25.4 MMOL/L (20-26); ABG Oxygen Saturation 97.5 % (95-100); ABG PH 7.467 (7.35-7.45); ABG PO2 89.2 MM HG (80-95); ABG TCO2 22.7 MMOL/L (23-27)
[2021-02-23 02:42] LABS: Alanine Aminotransferase 21 U/L (13-56); Albumin 1.4 G/DL (3.4-5.0); Alkaline Phosphatase 87 U/L (45-117); Aspartate Amino Transferase 20 U/L (0-37); Bilirubin,Total < 0.39 MG/DL (0.20-1.00); Blood Urea Nitrogen 8 MG/DL (7-18); Carbon Dioxide 24 MMOL/L (21-32); Estimated Glom Filtration Rate 133 ML/MIN; Glucose 135 MG/DL (74-106); Osmolality,Calculated 285.8 MOS/KG (273-304); Potassium 3.5 MMOL/L (3.5-5.1); Sodium 144 MMOL/L (136-145); Total Protein 4.7 G/DL (6.4-8.2)
[2021-02-23 02:50] LABS: Basophils % 0.1 % (0.0-0.8); Eosinophils # 0.1 10*3/uL (0.0-0.87); Eosinophils % 0.5 % (0.00-10.9); Immature Granulocytes % 4.4 %; Immature Granulocytes Absolute 0.54 #; Lymphocytes # 2.5 10*3/uL (1.4-4.0); Lymphocytes % 20.1 % (21.3-54.2); Mean Corpuscular HGB Conc 31.9 GM/DL (32-36); Mean Corpuscular Volume 83.3 FL (87-102); Mean Platelet Volume 11.2 FL (9.6-12.0); Monocytes % 7.9 % (1.7-12.7); Platelet Count 277 T/CUMM (130-400); Red Blood Count 3.24 MC/CUMM (3.8-5.5); Red Cell Distribution Width 17.1 % (9.3-17.3); White Blood Count 12.2 T/CUMM (4-12)
[2021-02-23 02:53] LABS: Hemoglobin 8.6 GM/DL (12.0-16.0)
[2021-02-23] MEDS: NOREPINEPHRINE 8 MG in SODIUM CHLORIDE 0.9% 242 ML IV PRN (03:03)
[2021-02-23 03:25] LABS: Eosinophils 1 % (0-10); Lymphocytes 21 % (20-55); Myelocytes 1 %; Segmented Neutrophils 71 % (50-85); Total Cells Counted 100
[2021-02-23 03:26] LABS: Hypochromasia 2+; Platelet Estimate Normal; Reactive Lymphocytes Few
[2021-02-23] MEDS: ENOXAPARIN 60 MG/0.6 ML SYRINGE SUBCUT SCH ×2 (08:08→21:35)
[2021-02-23] MEDS: DIGOXIN 0.25 MG TABLET PO SCH (08:08)
[2021-02-23] MEDS: VANCOMYCIN INJ 750 MG in SODIUM CHLORIDE 0.9% 250 ML IV SCH (08:09)
[2021-02-23 08:37] LABS: Calcium 7.5 MG/DL (8.5-10.1); Potassium 3.8 MMOL/L (3.5-5.1)
[2021-02-23] MEDS ORDERED: NITROGLYCERIN SL 0.4 MG TABLET SL PRN (13:08)
[2021-02-23] MEDS ORDERED: oxyCODONE/ACETAMINOPHEN 5-325 MG TABLET PO PRN (13:32)
[2021-02-23] MEDS ORDERED: NOREPINEPHRINE 4 MG/4 ML VIAL IV ONE (13:40)
[2021-02-23] MEDS: PANTOPRAZOLE 40 MG VIAL IV SCH (13:58)
[2021-02-23] MEDS ORDERED: LEVOTHYROXINE 100 MCG VIAL IV ONE (14:00)
[2021-02-23] MEDS ORDERED: NOREPINEPHRINE 8 MG in SODIUM CHLORIDE 0.9% 242 ML IV PRN (14:07)
[2021-02-23 16:10] VITALS: BP 97/44
[2021-02-23] MEDS: GABAPENTIN 600 MG TABLET PO SCH ×2 (16:22→21:34)
[2021-02-23] MEDS ORDERED: ESCITALOPRAM 10 MG TABLET PO SCH (21:00)
[2021-02-23] MEDS ORDERED: MORPHINE ER 15 MG TABLET PO SCH (21:00)
[2021-02-23] MEDS ORDERED: NOREPINEPHRINE 16 MG in SODIUM CHLORIDE 0.9% 234 ML IV PRN (22:00)
[2021-02-23 22:10] LABS: Calcium 7.5 MG/DL (8.5-10.1); Osmolality,Calculated 285.3 MOS/KG (273-304); Potassium 3.5 MMOL/L (3.5-5.1)
[2021-02-23] MEDS ORDERED: PHENYLEPHRINE INJ 160 MG in SODIUM CHLORIDE 0.9% 234 ML IV PRN (22:34)
[2021-02-23] MEDS: PHENYLEPHRINE DRIP 40 MG/250 ML PREMIX IV PRN (22:41)
[2021-02-23] MEDS: POTASSIUM CHLORIDE RIDER 20 MEQ/100 ML PREMIX IV PRN (23:18)
[2021-02-24] MEDS: ALBUTEROL/IPRATROPIUM 3 ML NEB RESP TX SCH ×3 (00:49→12:44)
[2021-02-24 04:34] LABS: Basophils # 0.1 10*3/uL (0.0-0.2); Basophils % 0.3 % (0.0-0.8); Eosinophils # 0.1 10*3/uL (0.0-0.87); Eosinophils % 0.4 % (0.00-10.9); Hematocrit 30.6 VOL% (35.7-47.0); Hemoglobin 10.1 GM/DL (12.0-16.0); Immature Granulocytes % 3.5 %; Immature Granulocytes Absolute 0.57 #; Lymphocytes % 24.7 % (21.3-54.2); Mean Platelet Volume 10.3 FL (9.6-12.0); Neutrophils % 59.1 % (38.7-73.9); Platelet Count 459 T/CUMM (130-400); Red Blood Count 3.73 MC/CUMM (3.8-5.5); Red Cell Distribution Width 17.8 % (9.3-17.3); White Blood Count 16.2 T/CUMM (4-12)
[2021-02-24 04:54] LABS: Calcium 7.5 MG/DL (8.5-10.1); Osmolality,Calculated 287.7 MOS/KG (273-304); Potassium 3.8 MMOL/L (3.5-5.1)
[2021-02-24 04:57] LABS: Hypochromasia 1+; Lymphocytes 21 % (20-55); Microcytosis 1+; Platelet Estimate Adequate; Segmented Neutrophils 72 % (50-85); Total Cells Counted 100
[2021-02-24] MEDS: INSULIN REGULAR 100 UNIT/ML SUBCUT SCH ×2 (05:45→12:24)
[2021-02-24] MEDS: POTASSIUM CHLORIDE RIDER 20 MEQ/100 ML PREMIX IV PRN (06:20)
[2021-02-24] MEDS: PHENYLEPHRINE DRIP 40 MG/250 ML PREMIX IV PRN ×2 (06:37→16:01)
[2021-02-24] MEDS: DIGOXIN 0.25 MG TABLET PO SCH (08:16)
[2021-02-24] MEDS: GABAPENTIN 600 MG TABLET PO SCH ×2 (08:16→14:16)
[2021-02-24] MEDS: ENOXAPARIN 60 MG/0.6 ML SYRINGE SUBCUT SCH (08:18)
[2021-02-24] MEDS ORDERED: PANTOPRAZOLE 40 MG TABLET PO SCH (09:00)
[2021-02-24] MEDS ORDERED: FUROSEMIDE 40 MG TABLET PO SCH (09:00)
[2021-02-24] MEDS ORDERED: LEVOTHYROXINE 125 MCG TABLET PO SCH (09:00)
== END 2021-02-24 16:25 | DRG 853 ==
LOC: EDUNIT# → EDBD → N.ED 11:53 → N.EDINP 13:48 → SUATTDRO 13:48 → N.CC 18:00 → N.ICU 02-20 23:34
PROVIDERS: ADMIT Internal Medicine; ATTEND Family Medicine